=== PATIENT | female | born 1990 | race Caucasian/White ===

== ENCOUNTER 2018-06-05 12:09 | Emergency (ER) | payer OTHER ==
[2018-06-05] MEDS: ADACEL/BOOSTRIX VACCINE (DIPHTH/PERTUSS/ACELL/TETANUS)0.5ML SYR (90715) IM (13:01)
== END 2018-06-05 13:30 | disposition home or self-care (01) ==
LOC: M ED 12:09
DX: S01.01XA Laceration without foreign body of scalp, initial encounter (principal); W20.8XXA Other cause of strike by thrown, projected or falling object, initial encounter; Y92.89 Other specified places as the place of occurrence of the external cause
CPT/HCPCS: 90715

== ENCOUNTER 2018-06-10 09:47 | Emergency (ER) | payer OTHER | END 2018-06-10 10:22 | disposition home or self-care (01) | LOC: M ED 09:47 | DX: Z48.02 Encounter for removal of sutures (principal) | CPT/HCPCS: 99282 ==

== ENCOUNTER 2019-02-08 11:16 | Emergency (ER) | payer OTHER ==
[~2019-02-08] VITALS: Ht 167.6 cm; Wt 59.1 kg
[2019-02-08] MEDS ORDERED: DERMABOND TOPICAL SKIN ADHESIVE TOP ONE (12:15)
[2019-02-08 12:24] VITALS: BP 120/86
== END 2019-02-08 12:43 | disposition home or self-care (01) ==
LOC: M ED 11:16
DX: S61.411A Laceration without foreign body of right hand, initial encounter (principal); W26.8XXA Contact with other sharp object(s), not elsewhere classified, initial encounter; Y92.89 Other specified places as the place of occurrence of the external cause; Y93.9 Activity, unspecified; Y99.0 Civilian activity done for income or pay